=== PATIENT | male | born 1965 | race Hispanic/Latino ===

== ENCOUNTER → 2019-03-21 | Day surgery (SDC) | payer OTHER ==
[~2019-03-21] MED LIST: ACETAMINOPHEN/CODEINE 300MG - 30MG TAB ONE; BUPIVACAINE 0.5%/EPI 30 ML SDV INJ ONE; CEFAZOLIN SOD 1 GM/NS 50ML 100 ML IV ONE; DEXAMETHASONE SOD PHOS INJ 4 MG/ML VIAL ONE; FENTANYL CITRATE/PF 100MCG/2 ML INJ ONE; LIDOCAINE HCL 2% LOCAL INJ 5 ML SDV VIAL INJ ONE; MIDAZOLAM HCL 2 MG/2 ML VIAL ONE; ONDANSETRON HCL INJ 2MG/ML 2ML 2 MG/ML VIAL ONE; PROPOFOL IV EMULSION 10 MG/ML 20 ML VIAL ONE; SEVOFLURANE INHAL SOLN 250 ML PEN BTL ONE
[2019-03-21 10:15] VITALS: BP 144/83
--- NOTE | 2019-03-29 00:13 | Operative Report ---
DATE OF PROCEDURE: 03/21/2019 SURGEON: José Lai MD PREOPERATIVE DIAGNOSES: Right knee medial meniscus tear, right knee anterior cruciate ligament tear, right knee degenerative joint disease of the knee. POSTOPERATIVE DIAGNOSES: Right knee medial meniscus tear, right knee lateral meniscus tear, right knee degenerative joint disease of the knee, right knee anterior cruciate ligament tear. OPERATIONS AND PROCEDURE PERFORMED: The patient underwent a right knee examination under anesthesia, right knee arthroscopy, right knee partial medial meniscectomy, right knee partial lateral meniscectomy, right knee chondroplasty of the patella. The trochlea of the medial femoral condyle, the medial tibial plateau, the lateral femoral condyle, and lateral tibial plateau. PROTECTIVE SIGNAL OPERATIONS SUPERVISOR: There was no server assistant. ANESTHESIA: General endotracheal intubation anesthesia. IV FLUIDS: Per the anesthesia record BRIEF DESCRIPTION OF THE PATIENT'S OPERATIVE PROCEDURE: Mr. Sousa was taken to the operating room, placed in supine position on the operating table. Following induction of general anesthesia as well as endotracheal intubation, the patient's right lower extremity was examined under anesthesia. He was found have a mild effusion within the knee joint. He had increased translation of the tibia with Samson's test and the anterior drawer test. The patient's lower extremity was prepped and draped in standard surgical fashion. A two-port technique used to provide this patient arthroscopic evaluation of the knee joint. Examination of suprapatellar pouch and medial lateral gutters found no evidence of loose bodies. There was, however, evidence of chondromalacia of the patellar and trochlear surfaces. The scope was advanced to the medial compartment. Examination of the medial compartment demonstrated a torn medial meniscus. There was also chondromalacia of the medial femoral condyle and medial tibial plateau. A combination of biting forceps and a motorized shaver used to resect the torn portion of meniscus. Chondroplasties of the medial femoral condyle and medial tibial plateau performed at this time. The scope was advanced to the intercondylar notch and the anterior cruciate ligament was found to be torn. Scope was advanced to the lateral compartment and there was a torn lateral meniscus. There was also chondromalacia of the articulating surfaces. A combination of biting forceps and a motorized shaver used to resect the torn portion of the lateral meniscus. Chondroplasties of the lateral femoral condyle and lateral tibial plateau performed at this time. The scope was then placed in the suprapatellar pouch and chondroplasties of the patellar and trochlear were performed. The knee was deflated with sterile normal saline. Each of the portal sites were closed using 4-0 nylon suture. The portal sites as well as the knee itself were injected with 0.5% Marcaine with epinephrine. Sterile dressings were applied and the patient was awakened and taken to the postanesthesia care unit in stable condition. MD TAE Solano/RADHA /[id number]
== END | disposition home or self-care (01) ==
LOC: OR 06:30
PROVIDERS: ATTEND Specialist
DX: S83.241A Other tear of medial meniscus, current injury, right knee, initial encounter (principal); S83.281A Other tear of lateral meniscus, current injury, right knee, initial encounter; S83.511A Sprain of anterior cruciate ligament of right knee, initial encounter; M17.11 Unilateral primary osteoarthritis, right knee; Z01.810 Encounter for preprocedural cardiovascular examination; G47.33 Obstructive sleep apnea (adult) (pediatric); M25.461 Effusion, right knee
CPT/HCPCS: 29880; 93005; J0690; J1100; J2001; J2250; J2405; J2704; J3010

== ENCOUNTER 2019-04-27 10:00 | Outpatient (RCR) | payer OTHER | END 2019-04-30 | LOC: PT 10:00 | PROVIDERS: ATTEND Specialist | DX: S83.511A Sprain of anterior cruciate ligament of right knee, initial encounter (principal); M25.561 Pain in right knee; M25.661 Stiffness of right knee, not elsewhere classified; M62.81 Muscle weakness (generalized); R26.2 Difficulty in walking, not elsewhere classified ==

== ENCOUNTER 2019-05-24 09:57 | Outpatient (RCR) | payer OTHER | END 2019-05-31 | LOC: PT 09:57 | PROVIDERS: ATTEND Specialist | DX: S83.511A Sprain of anterior cruciate ligament of right knee, initial encounter (principal); M25.561 Pain in right knee; M25.661 Stiffness of right knee, not elsewhere classified; M62.81 Muscle weakness (generalized); R26.2 Difficulty in walking, not elsewhere classified ==